=== PATIENT | male | born 1965 ===

== ENCOUNTER 2020-11-20 07:40 | Day surgery (SDC) | payer OTHER ==
[~2020-11-20 07:40] MED LIST: AVAPRO300 MG PO; CARDURA PO; FORTAMET1000 MG PO; HYDROD PO; JANUV PO; NORVASC5 MG PO; PAXIL20 MG PO; TOPROL XL25 M1 PO; VITAMIN D PO
[2020-11-20] MEDS ORDERED: PERCOCET 5-3251 EACH PO (13:21)
== END 2020-11-20 17:20 | disposition home or self-care (01) ==
LOC: CIR.AMB 07:40
PROVIDERS: ATTEND Surgery
DX: D35.1 Benign neoplasm of parathyroid gland (principal); Z20.822 Contact with and (suspected) exposure to COVID-19